=== PATIENT | female | born 1995 | race Caucasian/White ===

== ENCOUNTER 2021-02-03 15:08 | Inpatient (IN) | payer OTHER ==
[~2021-02-03] VITALS: Ht 160 cm; Wt 68.5 kg
[~2021-02-03 15:08] MED LIST: CYCLOBENZAPRINE5 MG PO; IBUPROFEN800 MG PO; TRAMADOL HCL50 MG PO
--- NOTE | 2021-02-04 13:59 | PR ---
[facility] [address] [facility] [place], [place] [address] Signed Progress Notes IP Datetime Report Generated by CPN: 02/04/2021 13:59 PROGRESS NOTES: [id number] Impression: Reassuring Heart Rate Procedures: Artificial ROM Plan: Continue Present Management VITAL SIGNS: [id number] Vital Signs: Reviewed; Within Normal Limits EXAM: [id number] Dilatation: 1.0 Effacement: 80 Station: 0 Contractions: q7-8 min MEMBRANES: [id number] Membranes Status: Ruptured Comments: 25 yo @ 39 3/7 weeks gestation IOL for ultrasound abnormality of echogenic amniotic fluid s/p cytotec x 2 AROM performed as noted Anticipate recheck in 2 hours if contraction intensity not significantly increased FETUS A: [id number] FHR Baseline: 130 Variability: Moderate 6-25bpm Accelerations: 15X15 Decelerations: None FHR Category: Category I Comments on Fetus A: No evidence of acidemia FETUS B: [id number] Signing Physician: Ivette Magaña DO Copies: ~ *Electronically Signed* 02/04/21 1359 IVETTE MAGAÑA DO PATIENT NAME: GURDEEP AMADOR PROGRESS NOTE DATE OF : [birth year] PHYSICIAN: IVETTE MAGAÑA DO RPT #: [id number] REPORT IS CONFIDENTIAL AND NOT TO BE RELEASED WITHOUT AUTHORIZATION
--- NOTE | 2021-02-05 11:22 | PR ---
[facility] [address] [facility] [place], [place] [address] Signed PP Progress Notes Datetime Report Generated by CPN: 02/05/2021 11:22 SUBJECTIVE: [id number] Pain: Within Normal Limits Nausea/Vomiting: Denies Flatus: Yes Bowel Movement: No Vital Signs: [id number] Vital Signs: Reviewed; Within Normal Limits Cardiovascular: Normal Respiratory: Normal Abdomen/Uterus: Normal Lochia: Normal Vulva/Perineum: Normal Extremities: Normal Progress: Normal Exam Comments: NAD, sitting in bed baby RRR No dyspnea/retractions Abd SNTND, FFBU Ext trace edema, Neg Nigel's BL IMPRESSION/PLAN/PROCEDURES: [id number] Impression: Normal Progression Plan: Continue Present Management Progress Notes: PPD#1 s/p -IOL for abnormal US, uncomplicated induction and delivery -hgb 11.7 this am, asymptomatic, VSS -ambulating, voiding, tolerating regular diet, pain well controlled with motrin - well -planning to go home tomorrow Signing Physician: Ivette Magaña DO Copies: ~ *Electronically Signed* 02/05/21 1122 IVETTE MAGAÑA DO PATIENT NAME: GURDEEP AMADOR PROGRESS NOTE DATE OF : [birth year] PHYSICIAN: IVETTE MAGAÑA DO RPT #: [id number] REPORT IS CONFIDENTIAL AND NOT TO BE RELEASED WITHOUT AUTHORIZATION
--- NOTE | 2021-02-06 08:27 | PR ---
[facility] [address] [facility] [place] [place] [address] Signed PP Progress Notes Datetime Report Generated by CPN: 02/06/2021 08:27 SUBJECTIVE: [id number] Pain: Within Normal Limits Nausea/Vomiting: Denies Flatus: Yes Bowel Movement: Yes Vital Signs: [id number] Vital Signs: Reviewed; Within Normal Limits EXAM: Ongoing Cardiovascular: Normal Respiratory: Normal Abdomen/Uterus: Normal Lochia: Normal Vulva/Perineum: Normal Extremities: Normal Progress: Normal Exam Comments: NAD, standing at bedside, just finished RRR No dyspnea or retractions Abd SNTND FFBU Extremities - trace edema, Neg Nigel's BL IMPRESSION/PLAN/PROCEDURES: [id number] Impression: Normal Progression Plan: Continue Present Management; Discharge Progress Notes: PPD #2 s/p s/p Rhogam Progressing well , ambulating/voiding/tolerating regular diet Pain well controlled on motrin well with some cluster feeding overnight Follow-up with [facility] for / support Anticipate DC to home today Signing Physician: Ivette Magaña DO Copies: *Electronically Signed* 02/06/21 08 IVETTE MAGAÑA DO PATIENT NAME: GURDEEP AMADOR PROGRESS NOTE DATE OF : [birth year] PHYSICIAN: IVETTE MAGAÑA DO RPT #: [id number] REPORT IS CONFIDENTIAL AND NOT TO BE RELEASED WITHOUT AUTHORIZATION [address] [address] Signed ~ *Electronically Signed* 02/06/21 0827 IVETTE MAGAÑA DO PATIENT NAME: GURDEEP AMADOR PROGRESS NOTE DATE OF : 93 PHYSICIAN: IVETTE MAGAÑA DO RPT #: [id number] REPORT IS CONFIDENTIAL AND NOT TO BE RELEASED WITHOUT AUTHORIZATION
--- NOTE | 2021-02-10 19:00 | PATH ---
[facility] [address] [place], [place] [address] Signed SPECIMEN(S): A PLACENTA SPECIMEN SOURCE: A. PLACENTA CLINICAL HISTORY: Mother's age: 25. Specific issues of concern: History of COVID in ; induction of labor. FINAL PATHOLOGIC DIAGNOSIS: Placenta, third trimester: - Zamudio placenta, small for stated gestational age of 39 weeks, 3 days. - Umbilical cord: Three-vessel umbilical cord with no histopathologic abnormality. - membranes: Pigmented macrophages. - Placental disc: Chorionic villi with mature villous morphology, focal placental infarct (1.5 cm in greatest dimension). NAL:cml:C2NR MICROSCOPIC EXAMINATION: Histologic sections of all submitted blocks are examined by light microscopy. These findings, together with the gross examination, support the pathologic diagnosis. GROSS DESCRIPTION: The specimen, labeled "WJ, placenta," is received fresh and placed in formalin and consists of a zamudio discoid placenta with the following parameters: Umbilical cord: Insertion central, measurement 44.3 x 1.2 cm; trivascular. Cord coiling index (per 10 cm): Five. Lesions: Not grossly identified. Membranes: Insertion site: Marginal, pink-simmons, opaque, rupture site 0.5 cm from edge of disc. Other: Not grossly identified. Chorionic Plate: Normal radiating vascular pattern, blue-purple and shiny. Lesions: Not grossly identified. Other: Not grossly identified. Maternal Surface: Normal cotyledons, intact. Lesions: One peripheral yellow, rubbery lesion (2.6 x 2.0 x 1.0 cm). Measurement: 18.0 x 15.5 x 2.4 cm. Weight (trimmed): 330 grams. Cut Surface: Maroon and spongy. Lesions: Previously mentioned peripheral yellow, lesion (2.6 x 2.0 x 1.0 cm) shows yellow-simmons soft to rubbery cut surface (A2). Basal plate fibrin measures 0.1 cm in thickness. PATIENT NAME: GURDEEP AMADOR PATHOLOGY DATE OF : [birth year] REPORT #: [id number] PHYSICIAN: ARASH CISNEROS PCP: MENA TEJADA REPORT IS CONFIDENTIAL AND NOT TO BE RELEASED WITHOUT AUTHORIZATION [facility] [address] [place], [place] [address] Signed Other Findings: Not grossly identified. Cassette Summary: (A1) Membranes and umbilical cord (A2) Peripheral rubbery lesion (A3) Placenta parenchyma (A4) Placenta parenchyma AC (under the direct supervision of a pathologist) The Gross Description was prepared using a voice recognition system. The report was reviewed for accuracy; however, sound-alike word errors, addition and/or deletions may occur. If there is any question about this report, please contact Client Services. PERFORMING LABORATORY: The technical component was performed by [employer], [address] [place] [id number] (V Belt Inspector: Jocelyn Hanna MD; CLIA# [id number]). [facility], [address] [address] (CLIA# [id number]). Diagnostician: Roseline Perales MD Pathologist Electronically Signed 02/10/2021 Copies: ~ PATIENT NAME: GURDEEP AMADOR PATHOLOGY DATE OF : [birth year] REPORT #: [id number] PHYSICIAN: ARASH PATHOLOGY PCP: MENA TEJADA REPORT IS CONFIDENTIAL AND NOT TO BE RELEASED WITHOUT AUTHORIZATION
== END 2021-02-06 11:15 | disposition home or self-care (01) | DRG 805 ==
LOC: FBC 15:08
PROVIDERS: ADMIT Obstetrics & Gynecology; ATTEND Obstetrics & Gynecology
PROC: 8E0ZXY6 Isolation (ICD-10-PCS; 2021-02-03)
PROC: 10E0XZZ Delivery of Products of Conception, External Approach (ICD-10-PCS; principal; 2021-02-04)
PROC: 0KQM0ZZ Repair Perineum Muscle, Open Approach (ICD-10-PCS; 2021-02-04)
PROC: 10907ZC Drainage of Amniotic Fluid, Therapeutic from Products of Conception, Via Natural or Artificial Opening (ICD-10-PCS; 2021-02-04)
PROC: 00HU33Z Insertion of Infusion Device into Spinal Canal, Percutaneous Approach (ICD-10-PCS; 2021-02-04)
PROC: 3E0R3BZ Introduction of Anesthetic Agent into Spinal Canal, Percutaneous Approach (ICD-10-PCS; 2021-02-04)
PROC: 3E0P7VZ Introduction of Hormone into Female Reproductive, Via Natural or Artificial Opening (ICD-10-PCS; 2021-02-04)
PROC: 3E033VJ Introduction of Other Hormone into Peripheral Vein, Percutaneous Approach (ICD-10-PCS; 2021-02-04)
PROC: 30233N1 Transfusion of Nonautologous Red Blood Cells into Peripheral Vein, Percutaneous Approach (ICD-10-PCS; 2021-02-05)
DX: O98.52 Other viral diseases complicating childbirth (principal); U07.1 COVID-19; Z37.0 Single live birth; O69.81X0 Labor and delivery complicated by cord around neck, without compression, not applicable or unspecified; Z3A.39 39 weeks gestation of pregnancy; O71.82 Other specified trauma to perineum and vulva; O70.1 Second degree perineal laceration during delivery; Z67.41 Type O blood, Rh negative
CPT/HCPCS: 83030; 85027; 86850; 86870; 86900; 86901; J2590; J2790; J2795; J3010; J7121